=== PATIENT | male | born 1955 | race Caucasian/White ===

== ENCOUNTER 2020-06-13 08:02 | Outpatient (CLI) | payer OTHER, SELFPAY ==
[2020-06-13 08:13] LABS: Hematocrit 44.1 % (40.0-54.0); Mean Corpuscular Hemoglobin 29.1 pg (27.0-31.0); Mean Corpuscular Volume 85.6 fL (78.0-102.0); Mean Platelet Volume 9.3 fl (8.7-11.0); Platelet Count Result 198 K/mm3 (150-420); Red Blood Count 5.15 M/mm3 (4.70-6.10); Red Cell Distribution Width 12.1 % (11.6-14.4); White Blood Count 5.4 K/mm3 (4.8-10.8)
[2020-06-13 13:47] LABS: Alanine Aminotransferase 37 U/L (16-63); Albumin Level 4.1 g/dL (3.4-5.0); Alkaline Phosphatase 61 U/L (46-116); Aspartate Amino Transferase 23 U/L (15-37); Bilirubin,Total 0.7 mg/dL (0.00-1.00); Blood Urea Nitrogen 19 mg/dL (7-18); Calcium 8.8 mg/dL (8.5-10.1); Carbon Dioxide 27 mmol/L (21-32); Chloride 105 mmol/L (98-108); Cholesterol 232 mg/dL (0-200); Estimated Glomerular Filt Rate 60; Glucose 100 mg/dL (70-99); HDL Direct 53 mg/dL (40-60); LDL Cholesterol Calculated 166 mg/dL (<130); Osmolality Calculated 294 mOsm/kg (285-295); Sodium 141 mmol/L (136-145); Total Protein 6.7 g/dL (6.4-8.2); Triglycerides 66 mg/dL (0-150)
== END 2020-06-13 08:03 | disposition home or self-care (01) ==
PROVIDERS: PCP Family Medicine; Visit Provider Family Medicine
DX: E78.5 Hyperlipidemia, unspecified (principal); I10 Essential (primary) hypertension
CPT/HCPCS: 36415; 80053; 80061; 85027

== ENCOUNTER 2023-01-07 13:25 | Outpatient (CLI) | payer OTHER, SELFPAY ==
[2023-01-07 13:38] LABS: Hematocrit 43.6 % (37.0-46.0); Hemoglobin 14.8 g/dL (12.4-15.3); Mean Corpuscular HGB Conc 33.9 g/dL (32.0-36.0); Mean Corpuscular Volume 85.5 fL (78.0-102.0); Mean Platelet Volume 9.3 fl (8.7-11.0); Platelet Count Result 191 K/mm3 (150-420); Red Cell Distribution Width 12.4 % (11.6-14.4); White Blood Count 5.3 K/mm3 (4.8-10.8)
[2023-01-07 14:28] LABS: Alanine Aminotransferase 48 U/L (16-63); Albumin Level 4.1 g/dL (3.4-5.0); Alkaline Phosphatase 67 U/L (46-116); Anion Gap 7 mmol/L (8-16); Aspartate Amino Transferase 29 U/L (15-37); Bilirubin,Total 0.6 mg/dL (0.00-1.00); Blood Urea Nitrogen 14 mg/dL (7-18); Calcium 8.7 mg/dL (8.5-10.1); Carbon Dioxide 30 mmol/L (21-32); Chloride 106 mmol/L (98-108); Cholesterol 220 mg/dL (0-200); Estimated Glomerular Filt Rate > 60; Glucose 117 mg/dL (70-99); HDL Direct 54 mg/dL (40-60); LDL Cholesterol Calculated 153 mg/dL (<130); Osmolality Calculated 297 mOsm/kg (285-295); Sodium 143 mmol/L (136-145); Total Protein 6.8 g/dL (6.4-8.2); Triglycerides 67 mg/dL (0-150)
== END 2023-01-07 13:26 | disposition home or self-care (01) ==
LOC: CHSLAB 13:27
PROVIDERS: PCP Family Medicine; Visit Provider Family Medicine
DX: R35.1 Nocturia (principal); E78.5 Hyperlipidemia, unspecified; I10 Essential (primary) hypertension
CPT/HCPCS: 36415; 80053; 80061; 84153; 85027; G0103

== ENCOUNTER 2024-09-24 14:54 | Outpatient (CLI) | payer OTHER, SELFPAY ==
[2024-09-24 15:06] LABS: Basophils Absolute Auto 0.05 K/mm3 (0.00-0.10); Basophils Percent Auto 0.5 % (0.0-1.0); Eosinophils Absolute Auto 0.17 K/mm3 (0.02-0.50); Eosinophils Percent Auto 1.8 % (1.0-6.0); Hemoglobin 14.6 g/dL (12.4-15.3); Immature Granulocyte Absolute 0.21 K/mm3 (0.00-0.00); Immature Granulocyte Percent A 2.3 % (0.0-0.0); Lymphocytes Absolute Auto 1.93 K/mm3 (1.10-4.50); Lymphocytes Percent Auto 20.9 % (18.0-42.0); Mean Corpuscular HGB Conc 33.2 g/dL (32-36); Mean Corpuscular Hemoglobin 27.9 pg (27.0-31.0); Mean Corpuscular Volume 84.1 fL (78.0-102.0); Mean Platelet Volume 8.4 fl (8.7-11.0); Monocytes Absolute Auto 0.62 K/mm3 (0.10-0.90); Monocytes Percent Auto 6.7 % (2.0-11.0); Neutrophils Absolute Auto 6.27 K/mm3 (1.70-7.20); Neutrophils Percent Auto 67.8 % (50.0-70.0); Platelet Count Result 243 K/mm3 (150-420); Red Blood Count 5.23 M/mm3 (4.70-6.10); White Blood Count 9.3 K/mm3 (4.8-10.8)
[2024-09-24 15:42] LABS: Alanine Aminotransferase 38 U/L (16-63); Albumin Level 3.9 g/dL (3.4-5.0); Alkaline Phosphatase 81 U/L (46-116); Anion Gap 8 mmol/L (4-12); Aspartate Amino Transferase 18 U/L (15-37); Bilirubin,Total 0.5 mg/dL (0.00-1.00); Blood Urea Nitrogen 14 mg/dL (7-18); Calcium 9.1 mg/dL (8.5-10.1); Carbon Dioxide 30 mmol/L (21-32); Chloride 104 mmol/L (98-108); Cholesterol 208 mg/dL (0-200); Estimated Glomerular Filt Rate > 60; Glucose 85 mg/dL (70-99); HDL Direct 41 mg/dL (40-60); LDL Cholesterol Calculated 151 mg/dL (<130); Osmolality Calculated 293 mOsm/kg (285-295); Potassium 4.3 mmol/L (3.5-5.1); Sodium 142 mmol/L (136-145); Total Protein 6.7 g/dL (6.4-8.2); Triglycerides 81 mg/dL (0-150)
[2024-09-24 16:35] LABS: Thyroid Stimulating Hormone Reflex 1.24 u/IU/mL (0.36-3.74)
== END 2024-09-24 14:55 | disposition home or self-care (01) ==
PROVIDERS: PCP Family Medicine; Visit Provider Family Medicine
DX: E03.9 Hypothyroidism, unspecified (principal); J32.9 Chronic sinusitis, unspecified; R35.1 Nocturia; I10 Essential (primary) hypertension
CPT/HCPCS: 36415; 80053; 80061; 84153; 84443; 85025; G0103

== ENCOUNTER 2024-09-30 10:14 | Outpatient (CLI) | payer OTHER, SELFPAY ==
--- NOTE | ~2024-09-30 | CT_ITS ---
CT sinus wo con Ordering provider: Timothy Schwartz DO History: . Chronic sinusitis, getting worse, clearing throat/drainage . Comparison: None. Technique: Thin slice Scans CT of the paranasal sinuses was performed with coronal and sagittal refor matted images. No IV contrast. . Automated exposure control and iterative reconstruction technique w ere employed. The dose-length product was 339.79 mGy-cm. Findings: NASAL SEPTUM: Very mild left nasal septal deviation. OSTEOMEATAL UNITS: Bilaterally patent. NASAL TURBINATES AND NASOPHARYNX: Normal. PARANASAL SINUSES: Bilateral maxillary sinus. VISUALIZED MASTOIDS: Normal as visualized. BONES: Normal. SUPERFICIAL SOFT TISSUES/VISUALIZED BRAIN PARENCHYMA: Normal. IMPRESSION: Bilateral maxillary sinus Reviewed, dictated and finalized at location A. GETTER IMPRESSION: Bilateral maxillary sinus
== END 2024-09-30 10:15 | disposition home or self-care (01) ==
PROVIDERS: PCP Family Medicine; Visit Provider Family Medicine
DX: J32.9 Chronic sinusitis, unspecified (principal)
CPT/HCPCS: 70486